=== PATIENT | female | born 1970 | race Caucasian/White ===

== ENCOUNTER 2020-06-15 08:28 | Emergency (ER) | payer BC ==
[~2020-06-15] VITALS: Ht 172.7 cm; Wt 88.6 kg
[~2020-06-15 08:28] MED LIST: AMOX/K CLAV875 M1 OR; ATIVAN1 M1 OR; FISH OIL1000 MG PO; GLUCOSAMINE1 TA1 PO; KLS OMEPRAZ20 MG PO; MAGNESIUM-OX400 MG PO; MUCINEX DM1 TA1 OR; MULTI VIT PO; PRILOSEC20 MG/CAP PO; PROMETH/COD1 ML OR; XANAX0.25 MG OR; ZITHROMAX250 MG OR; [UNRECOGNIZED DRUG - OTHER] OR
[2020-06-15 12:08] LABS: HEMATOCRIT 39.6 % (37.0-47.0); HEMOGLOBIN 12.8 g/dl (12.0-16.0); IMMATURE GRANULOCYTES 0.3 % (0.0-5.0); MEAN CELL VOLUME 91.2 fL CALC (80.0-100.0); MEAN CORPUSCULAR HGB 29.5 pG CALC (26.0-32.0); MEAN CORPUSCULAR HGB CONC 32.3 g/dL CAL (32.0-36.0); NEUT# 5.71 thou/uL (2.00-7.15); RED BLOOD COUNT 4.34 mill/uL (4.20-5.60); RED CELL DISTRI WIDTH 13.2 % (11.5-15.5)
[2020-06-15 12:18] LABS: PROTHROMBIN TIME 9.9 SECONDS (9.0-12.5)
[2020-06-15 12:22] LABS: ALKALINE PHOSPHATASE 72 u/l (38-126); ANION GAP 10 (6-22 (CALC)); BILIRUBIN, TOTAL 0.7 mg/dL (0.0-1.4); BUN 15 mg/dL (7-17); BUN/CREATININE RATIO 24 (12-20 (CALC)); CARBON DIOXIDE 26 mmol/l (22-30); CHLORIDE 102 mmol/l (95-108); CREATININE 0.6 mg/dL (0.5-1.0); GFR > 60 ML/MIN (>=60 (CALC)); GFR FOR AFR.AMER. > 60 ML/MIN (>=60 (CALC)); POTASSIUM 4.3 mmol/l (3.5-5.1); SODIUM 133 mmol/l (137-146); TOTAL PROTEIN 6.7 g/dL (6.3-8.2)
[2020-06-15 12:23] LABS: SGOT/AST 35 u/l (14-36)
[2020-06-15 13:00] VITALS: BP 120/59
== END 2020-06-15 13:00 | disposition short-term general hospital (02) | DRG 563 ==
LOC: ED 08:28
PROVIDERS: Student in an Organized Health Care Education/Training Program
PROC: 0HQ1XZZ Repair Face Skin, External Approach (ICD-10-PCS; principal; 2020-06-15)
DX: S52.022B Displaced fracture of olecranon process without intraarticular extension of left ulna, initial encounter for open fracture type I or II (principal); S00.511A Abrasion of lip, initial encounter; S01.112A Laceration without foreign body of left eyelid and periocular area, initial encounter; S80.812A Abrasion, left lower leg, initial encounter; S80.212A Abrasion, left knee, initial encounter; S40.212A Abrasion of left shoulder, initial encounter; R07.89 Other chest pain; S80.02XA Contusion of left knee, initial encounter; S80.12XA Contusion of left lower leg, initial encounter; V18.0XXA Pedal cycle driver injured in noncollision transport accident in nontraffic accident, initial encounter; Y93.55 Activity, bike riding; Y92.410 Unspecified street and highway as the place of occurrence of the external cause

== ENCOUNTER 2020-08-29 09:45 | Emergency (ER) | payer BC ==
[~2020-08-29] VITALS: Ht 172.7 cm; Wt 87.7 kg
[2020-08-29 10:34] LABS: HEMATOCRIT 42.6 % (37.0-47.0); HEMOGLOBIN 13.9 g/dl (12.0-16.0); IMMATURE GRANULOCYTES 0.2 % (0.0-5.0); MEAN CELL VOLUME 87.3 fL CALC (80.0-100.0); MEAN CORPUSCULAR HGB 28.5 pG CALC (26.0-32.0); MEAN CORPUSCULAR HGB CONC 32.6 g/dL CAL (32.0-36.0); NEUT# 3.37 thou/uL (2.00-7.15); RED BLOOD COUNT 4.88 mill/uL (4.20-5.60); RED CELL DISTRI WIDTH 13.7 % (11.5-15.5)
[2020-08-29 11:02] LABS: ALBUMIN 4.2 g/dL (3.2-5.0); ALKALINE PHOSPHATASE 72 u/l (38-126); ANION GAP 10 (6-22 (CALC)); BILIRUBIN, TOTAL 0.9 mg/dL (0.0-1.4); BUN 8 mg/dL (7-17); BUN/CREATININE RATIO 13 (12-20 (CALC)); CARBON DIOXIDE 26 mmol/l (22-30); CHLORIDE 103 mmol/l (95-108); CREATININE 0.6 mg/dL (0.5-1.0); GFR > 60 ML/MIN (>=60 (CALC)); GFR FOR AFR.AMER. > 60 ML/MIN (>=60 (CALC)); POTASSIUM 4.4 mmol/l (3.5-5.1); SGOT/AST 28 u/l (14-36); SODIUM 134 mmol/l (137-146)
[2020-08-29 12:13] VITALS: BP 116/59
== END 2020-08-29 12:15 | disposition home or self-care (01) | DRG 179 ==
LOC: ED 09:45
PROVIDERS: Family Medicine
DX: U07.1 COVID-19 (principal); R51.9 Headache, unspecified; R53.83 Other fatigue

== ENCOUNTER 2020-11-28 | Emergency (ER) | payer BC ==
[~2020-11-28] MED LIST changes: +BLACK COHOSH PO; +CALCIUM MAGNESIUM & PO; +OS-CAL 500500 M1 PO; +VITAMIN C 500 M1 TAB PO; +VITAMIN D5000 UNIT PO; +VITAMIN E400 UNIT PO; +ZYRTEC10 MG PO
[2020-11-28 22:21] LABS: HEMATOCRIT 36.3 % (37.0-47.0); HEMOGLOBIN 11.8 g/dl (12.0-16.0); IMMATURE GRANULOCYTES 0.1 % (0.0-5.0); MEAN CELL VOLUME 89.6 fL CALC (80.0-100.0); MEAN CORPUSCULAR HGB 29.1 pG CALC (26.0-32.0); MEAN CORPUSCULAR HGB CONC 32.5 g/dL CAL (32.0-36.0); NEUT# 3.07 thou/uL (2.00-7.15); RED BLOOD COUNT 4.05 mill/uL (4.20-5.60); RED CELL DISTRI WIDTH 13.7 % (11.5-15.5)
[2020-11-28 22:42] LABS: ALBUMIN 4.1 g/dL (3.2-5.0); ALKALINE PHOSPHATASE 73 u/l (38-126); ANION GAP 12 (6-22 (CALC)); BUN 24 mg/dL (7-17); BUN/CREATININE RATIO 34 (12-20 (CALC)); CARBON DIOXIDE 24 mmol/l (22-30); CHLORIDE 100 mmol/l (95-108); CREATININE 0.7 mg/dL (0.5-1.0); ETHYL ALCOHOL 0 mg/dl (0-30); GFR > 60 ML/MIN (>=60 (CALC)); GFR FOR AFR.AMER. > 60 ML/MIN (>=60 (CALC)); LIPASE 90 u/l (23-300); POTASSIUM 3.8 mmol/l (3.5-5.1); SGOT/AST 30 u/l (14-36); SODIUM 132 mmol/l (137-146); TOTAL PROTEIN 6.6 g/dL (6.3-8.2)
[2020-11-28 22:50] LABS: ACT PARTIAL THROMBO TIME 25.2 SECONDS (20.0-32.5); PROTHROMBIN TIME 10.1 SECONDS (9.0-12.5)
[2020-11-28 22:51] LABS: D-DIMER 0.17 mg/L (0.19-0.60)
[2020-11-29 00:33] LABS: URINE BILIRUBIN - DIPSTICK NEGATIVE (NEGATIVE); URINE BLOOD DIPSTICK NEGATIVE (NEGATIVE); URINE COLOR YELLOW; URINE GLUCOSE - DIPSTICK NEGATIVE (NEGATIVE); URINE KETONE NEGATIVE (NEGATIVE); URINE LEUK ESTERASE MODERATE (NEGATIVE); URINE NITRITE - DIPSTICK NEGATIVE (Negative); URINE PH 5.5 (4.5-8.0); URINE PROTEIN - DIPSTICK NEGATIVE (NEG-TRACE); URINE UROBILINOGEN - DIPSTICK 0.2 E.U./dL (0.2)
[2020-11-29 00:47] LABS: URINE BACTERIA FEW hpf; URINE MUCUS FEW hpf (NONE-FEW); URINE SQUAMOUS EPITHELIAL CELL FEW EPI/hpf (0-FEW); URINE WBC 20-50 WBC/hpf (0-5)
[2020-11-29] MEDS ORDERED: BACTRIM DS1 TAB PO (00:50)
[2021-02-16] MEDS ORDERED: [UNRECOGNIZED DRUG - OTHER] PO (12:49)
[2021-02-16] MEDS ORDERED: B COMPLE2 PO (12:49)
[2021-02-16] MEDS ORDERED: GLUCOSAMINE CHO1 CA3 PO (12:50)
[2021-02-16] MEDS ORDERED: MAGNESIUM200 M1 PO (12:51)
[2021-02-16] MEDS ORDERED: BLACK CURRENT SEED PO (12:51)
[2021-02-16] MEDS ORDERED: CBD OIL SL (12:52)
== END 2020-11-29 01:14 | disposition home or self-care (01) | DRG 312 ==
DX: R55 Syncope and collapse (principal); N39.0 Urinary tract infection, site not specified

== ENCOUNTER 2021-02-22 10:05 | Day surgery (SDC) | payer BC ==
[~2021-02-22 10:05] MED LIST changes: +B COMPLE2 PO; +BACTRIM DS1 TAB PO; +BLACK CURRENT SEED PO; +CBD OIL SL; +GLUCOSAMINE CHO1 CA3 PO; +MAGNESIUM200 M1 PO; +[UNRECOGNIZED DRUG - OTHER] PO
[2021-02-22 11:43] VITALS: BP 107/64
== END 2021-02-22 11:54 | disposition home or self-care (01) | DRG 951 ==
LOC: ENDO 10:05
PROVIDERS: ATTEND Surgery
PROC: 0DJD8ZZ Inspection of Lower Intestinal Tract, Via Natural or Artificial Opening Endoscopic (ICD-10-PCS; principal; 2021-02-22)
DX: Z12.11 Encounter for screening for malignant neoplasm of colon (principal)

== ENCOUNTER 2022-09-07 09:01 | Emergency (ER) | payer BC ==
[~2022-09-07] VITALS: Ht 172.7 cm; Wt 85.0 kg
[2022-09-07 09:22] VITALS: BP 142/62
[2022-09-07 09:31] VITALS: BP 118/83
[2022-09-07 10:45] VITALS: BP 134/81
[2022-09-07] MEDS ORDERED: MUPIROCIN2 % EX (10:48)
[2022-09-07 11:00] VITALS: BP 112/72
== END 2022-09-07 11:08 | disposition home or self-care (01) | DRG 556 ==
LOC: ED 09:01
DX: M25.562 Pain in left knee (principal); R07.81 Pleurodynia; V89.9XXA Person injured in unspecified vehicle accident, initial encounter